=== PATIENT | female | born 1980 | race Caucasian/White ===

== ENCOUNTER → 2018-08-23 | Outpatient (REF) | payer BC ==
[2018-08-23 15:51] LABS: BLOOD UREA NITROGEN 12 MG/DL (7-18); CALCIUM LEVEL 8.5 MG/DL (8.5-10.1); CARBON DIOXIDE LEVEL 28 MEQ/L (21-32); CHLORIDE LEVEL 104 MEQ/L (98-107); GLOMERULAR FILTRATION RATE > 60.0 (>60); GLUCOSE, FASTING 132 MG/DL (70-100); POTASSIUM SERUM 3.9 MEQ/L (3.5-5.1); SODIUM LEVEL 140 MEQ/L (136-145)
== END ==
LOC: M LABDRAW1 14:46
PROVIDERS: ATTEND Internal Medicine Endocrinology, Diabetes & Metabolism
DX: E28.2 Polycystic ovarian syndrome (principal)

== ENCOUNTER 2023-09-08 18:27 | Emergency (ER) | payer BC, OTHER ==
[~2023-09-08] VITALS: Ht 167.6 cm; Wt 102.4 kg
[2023-09-08] MEDS ORDERED: SPIR100T3 (18:36)
[2023-09-08] MEDS ORDERED: SEMA1PEN4 (18:36)
[2023-09-08] MEDS ORDERED: METF-838 (18:36)
[2023-09-08] MEDS ORDERED: FAMO40TA3 (18:36)
[2023-09-08] MEDS ORDERED: MIREIUD (18:38)
[2023-09-08 20:50] VITALS: BP 123/96; TEMP 97.1; O2SAT 99
== END 2023-09-08 20:54 | disposition home or self-care (01) ==
LOC: M ED 18:27
DX: S80.11XA Contusion of right lower leg, initial encounter (principal); Y92.410 Unspecified street and highway as the place of occurrence of the external cause; Y93.9 Activity, unspecified; Y99.9 Unspecified external cause status; V49.40XA Driver injured in collision with unspecified motor vehicles in traffic accident, initial encounter; H93.19 Tinnitus, unspecified ear; K21.9 Gastro-esophageal reflux disease without esophagitis; E28.2 Polycystic ovarian syndrome; Z88.0 Allergy status to penicillin; Z79.4 Long term (current) use of insulin; Z79.84 Long term (current) use of oral hypoglycemic drugs; Z79.899 Other long term (current) drug therapy